=== PATIENT | male | born 1980 | race Caucasian/White ===

== ENCOUNTER 2016-11-26 22:17 | Emergency (ER) | payer OTHER ==
--- NOTE | 2016-11-26 23:08 | ED ---
Fall HPI - General Chief Complaint: Fall Stated Complaint: Fall. Neck Injury Time Seen by Provider: 11/26/16 22:40 Source: patient Mode of arrival: ambulatory - History of Present Illness Initial Comments: Patient's a 36-year-old man who presents to be evaluated after he had a fall down the stairs tonight. The patient states that he "tripped over my own feet. " And then tumbled about 8 stairs. He is complaining of pain to the TMJ area bilaterally. Also is having some left hand pain. He also noted abrasions to the left hand. MD Complaint: fall -: hour(s) Fall From: down stairs (#) When Fall Occurred: 1-3 hours [employer] Fall Witnessed: yes, by bystander Place Fall Occurred: home Loss of Consciousness: none Prolonged Down Time?: no Symptoms Prior to Fall: none - Related Data Home Medications Medication Instructions Recorded Confirmed Naproxen Sodium [Anaprox DS] 550 mg PO Q12HR PRN 11/26/16 11/26/16 Previous Rx's Medication Instructions Recorded traMADol HCl [Ultram] 50 mg PO Q6H PRN #20 tab 11/27/16 Allergies Allergy/AdvReac Type Severity Reaction Status Date / Time No Known Allergies Allergy Verified 11/26/16 22:49 Review of Systems ROS Statement: Those systems with pertinent positive or pertinent negative responses have been documented in the HPI. ROS Other: All systems not noted in ROS Statement are negative. Constitutional: Denies: fever, weakness Eyes: Denies: eye pain, vision change Respiratory: Denies: cough, dyspnea Cardiovascular: Denies: chest pain, palpitations, syncope Gastrointestinal: Denies: abdominal pain, vomiting, diarrhea Genitourinary: Denies: dysuria, hematuria Musculoskeletal: Reports: joint swelling (Left hand). Denies: back pain Skin: Reports: lesions (Abrasions left hand). Denies: rash Neurological: Reports: headache. Denies: weakness, numbness, paresthesias Hematological/Lymphatic: Denies: easy bleeding Past Medical History Past Medical History: No Reported History History of Any Multi-Drug Resistant Organisms: None Reported Past Surgical History: No Surgical Hx Reported Past Psychological History: No Psychological Hx Reported Smoking Status: Current every day smoker Past Alcohol Use History: None Reported Past Drug Use History: None Reported General Exam Limitations: no limitations General appearance: alert, in no apparent distress Head exam: Present: atraumatic, normocephalic Eye exam: Present: normal appearance. Absent: scleral icterus, conjunctival injection ENT exam: Present: normal oropharynx, mucous membranes moist, TM's normal bilaterally, normal external ear exam, other (Dental caries) Neck exam: Present: normal inspection, full ROM. Absent: tenderness, meningismus Respiratory exam: Present: normal lung sounds bilaterally. Absent: respiratory distress, wheezes, rales, rhonchi, stridor Cardiovascular Exam: Present: regular rate, normal rhythm, normal heart sounds. Absent: systolic murmur, diastolic murmur, rubs, gallop GI/Abdominal exam: Present: soft. Absent: distended, tenderness, guarding, rebound, mass Extremities exam: Present: normal inspection, full ROM, tenderness (Left hand), normal capillary refill, other (Contusion and abrasion to the dorsum the left hand.). Absent: pedal edema, calf tenderness Back exam: Present: normal inspection, full ROM. Absent: tenderness, CVA tenderness (R), CVA tenderness (L), paraspinal tenderness, vertebral tenderness Neurological exam: Present: alert, oriented X3, CN II-XII intact, normal gait. Absent: motor sensory deficit Skin exam: Present: warm, dry, intact, normal color, abrasion. Absent: rash Course Vital Signs 11/26/16 11/27/16 22:33 00:03 Temperature 98.4 F 99.5 F Pulse Rate 123 H 100 Respiratory 20 18 Rate Blood Pressure 117/87 131/78 O2 Sat by Pulse 96 97 Oximetry - Reevaluation(s) Reevaluation #1: 11/26/16 23:05 After discussion of risks, benefits, indications, the patient refuses tetanus booster. Reevaluation #2: 11/27/16 00:19 Reviewed the results with the patient and splinted the metacarpal fracture. I did recommend complete mandible series, but the patient states that he has must go. He did accept a prescription to return and have the mandible x-ray completed. We discussed further follow-up and care as well as return parameters and splint care. Disposition Clinical Impression: Fall, Fracture of fifth metacarpal bone of left hand Disposition: HOME SELF-CARE Condition: Fair Instructions: Fall Prevention for Older Adults (ED), Hand Fracture (ED) Prescriptions: traMADol HCl [Ultram] 50 mg PO Q6H PRN #20 tab PRN Reason: Pain Referrals: Franki Mcknight MD [Primary Care Provider] - 1-2 days
--- NOTE | 2016-11-26 23:36 | CT ---
EXAMINATION TYPE: CT brain jonathan wo con DATE OF EXAM: 11/26/2016 11:26 PM COMPARISON: NONE HISTORY: fall down stairs CT DLP: 1439.50 mGycm Automated exposure control for dose reduction was used. TECHNIQUE: CT scan of the head and cervical spine are performed without contrast. FINDINGS: The ventricles and sulci appear normal. There is no mass effect nor midline shift. There is no sign of intracranial hemorrhage. The calvarium is intact. The cervical vertebra have normal alignment. Posterior elements are intact. Facet joints are intact. Disc spaces are normal. Prevertebral soft tissues appear normal. Skull base appears intact. IMPRESSION: Normal CT scan of the brain. Normal CT scan of the cervical spine.
--- NOTE | 2016-11-26 23:45 | XR ---
EXAMINATION TYPE: XR hand complete LT DATE OF EXAM: 11/26/2016 11:27 PM COMPARISON: NONE HISTORY: Pain TECHNIQUE: 3 views FINDINGS: There is possible nondisplaced transverse fracture of the base of the fifth metatarsal carp al. There is no dislocation. The carpal bones appear intact. IMPRESSION: Possible proximal fifth metacarpal fracture. Clinical correlation is recommended.
--- NOTE | 2016-11-26 23:48 | XR ---
EXAMINATION TYPE: XR chest 2V DATE OF EXAM: 11/26/2016 11:26 PM COMPARISON: 06/23/2014 HISTORY: Fell down the stairs. Chest pain. TECHNIQUE: Frontal and lateral views of the chest are obtained. FINDINGS: Heart and mediastinum are normal. Lungs are clear. Diaphragm is normal. Bony thorax and so ft tissues appear normal. There is no sign of a pneumothorax. IMPRESSION: Normal chest. No change.
[2016-11-27 00:04] VITALS: BP 131/78; PULSE 100; RESP 18; TEMP 99.5
[2016-11-27] MEDS ORDERED: traMADol 50 MG TAB PO STA (00:17)
== END 2016-11-27 00:27 | disposition home or self-care (01) ==
LOC: EC 22:17
DX: S62.307A Unspecified fracture of fifth metacarpal bone, left hand, initial encounter for closed fracture (principal); W10.9XXA Fall (on) (from) unspecified stairs and steps, initial encounter; Y92.008 Other place in unspecified non-institutional (private) residence as the place of occurrence of the external cause; F17.200 Nicotine dependence, unspecified, uncomplicated; R68.84 Jaw pain
CPT/HCPCS: 70450; 71020; 72125; 99284

== ENCOUNTER 2017-02-17 12:37 | Emergency (ER) | payer OTHER ==
[2017-02-17 12:51] VITALS: BP 109/74; PULSE 75; RESP 18; TEMP 99.3
[2017-02-17] MEDS ORDERED: CLINDAMYCIN 150 MG CAP PO STA (13:20)
--- NOTE | 2017-02-17 13:23 | ED ---
ENT HPI - General Chief complaint: Dental/Oral Stated complaint: Lip Swollen Time Seen by Provider: 02/17/17 13:05 Source: patient, RN notes reviewed, old records reviewed Mode of arrival: ambulatory Limitations: no limitations - History of Present Illness Initial comments: This is a 36-year-old male presenting to emergency Department chief complaint of upper lip swelling for the past 2 days. Patient reports that he has very poor dentition is has cavities over T7, 8, 9 and 10. Patient reports he is supposed to see a dentist next week to have them pulled and be fitted for dentures. Patient reports that he would not be able to be seen by them until this infection is cleared up. Patient denies any fever or chills. He denies any difficulty opening closing his mouth. Patient states that the pain is localized over the upper lip and extending slightly up into the lower nostril. Patient reports she's been trying ice and Motrin but it is not helping with the pain. Patient states the pain is mild at this time, but at night it becomes much worse. Patient denies any recent fever, chills, shortness of breath, chest pain, back pain, abdominal pain, nausea vomiting, numbness or tingling, dysuria or hematuria, constipation or diarrhea, headaches or visual changes, or any other current symptoms - Related Data Home Medications Medication Instructions Recorded Confirmed Naproxen Sodium [Anaprox DS] 550 mg PO Q12HR PRN 11/26/16 11/26/16 Previous Rx's Medication Instructions Recorded traMADol HCl [Ultram] 50 mg PO Q6H PRN #20 tab 11/27/16 Acetaminophen-Codeine 300-30mg 1 tab PO Q6H PRN #15 tablet 02/17/17 [Tylenol #3] Clindamycin [Cleocin] 450 mg PO TID 10 Days 02/17/17 Allergies Allergy/AdvReac Type Severity Reaction Status Date / Time No Known Allergies Allergy Verified 02/17/17 12:51 Review of Systems ROS Statement: Those systems with pertinent positive or pertinent negative responses have been documented in the HPI. ROS Other: All systems not noted in ROS Statement are negative. Past Medical History Past Medical History: No Reported History History of Any Multi-Drug Resistant Organisms: None Reported Past Surgical History: No Surgical Hx Reported Past Psychological History: No Psychological Hx Reported Smoking Status: Current every day smoker Past Alcohol Use History: None Reported Past Drug Use History: None Reported General Exam - General Exam Comments Initial Comments: This is a pleasant 36-year-old male. No acute distress. Limitations: no limitations General appearance: alert, in no apparent distress Head exam: Present: atraumatic, normocephalic, normal inspection Eye exam: Present: normal appearance, PERRL, EOMI. Absent: scleral icterus, conjunctival injection, periorbital swelling ENT exam: Present: normal oropharynx, mucous membranes moist, TM's normal bilaterally. Absent: normal exam (Patient is extremely poor dentition, multiple dental caries and chipped teeth through 7, 8, 9, 10. Evidence of swelling over the upper gums. He has swelling over the upper lip.) Neck exam: Present: normal inspection. Absent: tenderness, meningismus, lymphadenopathy Respiratory exam: Present: normal lung sounds bilaterally. Absent: respiratory distress, wheezes, rales, rhonchi, stridor Cardiovascular Exam: Present: regular rate, normal rhythm, normal heart sounds. Absent: systolic murmur, diastolic murmur, rubs, gallop, clicks GI/Abdominal exam: Present: soft, normal bowel sounds. Absent: distended, tenderness, guarding, rebound, rigid Extremities exam: Present: normal inspection, full ROM, normal capillary refill. Absent: tenderness, pedal edema, joint swelling, calf tenderness Back exam: Present: normal inspection Neurological exam: Present: alert, oriented X3, CN II-XII intact Psychiatric exam: Present: normal affect, normal mood Skin exam: Present: warm, dry, intact, normal color. Absent: rash Course Vital Signs 02/17/17 12:48 Temperature 99.3 F Pulse Rate 75 Respiratory 18 Rate Blood Pressure 109/74 O2 Sat by Pulse 94 L Oximetry Medical Decision Making - Medical Decision Making This is a 36-year-old male, with significant swelling over the upper lip for the past 2 days. Patient has severe poor dentition over the upper teeth, T7, 8 , 9, 10 are full of multiple dental caries. The gums over the area are red and swollen. Patient will be started on clindamycin, and Tylenol 3 for pain. Discussed close follow-up with his dentist. Discussed return parameters if he does not get any better the next 2 or 3 days she may need to return for IV antibiotic. Patient understands treatment plan will comply. Return parameters were discussed. Disposition Clinical Impression: Dental abscess, Swollen upper lip Disposition: HOME SELF-CARE Condition: Good Instructions: Dental Abscess (ED) Additional Instructions: Patient advised to complete antibiotic prescription. He is pain medication instructed. Follow-up with her dentist as soon as possible. Return to the emergency department if the swelling continues after 2-3 days of antibiotic. Prescriptions: Acetaminophen-Codeine 300-30mg [Tylenol #3] 1 tab PO Q6H PRN #15 tablet PRN Reason: Pain Clindamycin [Cleocin] 450 mg PO TID 10 Days Referrals: Wilmar Baltazar MD [Primary Care Provider] - 1-2 days Time of Disposition: 13:19
== END 2017-02-17 13:32 | disposition home or self-care (01) ==
LOC: EC 12:37
DX: K04.7 Periapical abscess without sinus (principal); K02.9 Dental caries, unspecified; F17.200 Nicotine dependence, unspecified, uncomplicated
CPT/HCPCS: 99283

== ENCOUNTER → 2017-09-29 | Outpatient (CLI) | payer OTHER ==
--- NOTE | 2017-09-29 10:41 | XR ---
EXAMINATION TYPE: XR facial bones complete DATE OF EXAM: 09/29/2017 COMPARISON: NONE HISTORY: Pain left temporal and left eye TECHNIQUE: 3 views submitted FINDINGS: Visualized osseous structures intact. No diagnostic evidence of acute fracture. Mucosal thi ckening involving both maxillary sinuses. Nasal bone intact. IMPRESSION: 1. No acute fracture as visualized, if symptoms persist correlate with CT scan.
== END | disposition home or self-care (01) ==
LOC: RADXRMAIN 10:14
PROVIDERS: ATTEND Emergency Medicine
DX: S00.83XA Contusion of other part of head, initial encounter (principal)
CPT/HCPCS: 70150

== ENCOUNTER → 2017-10-01 | Outpatient (CLI) | payer OTHER ==
--- NOTE | 2017-10-01 14:36 | CT ---
EXAMINATION TYPE: CT brain wo con, CT facial bones wo con DATE OF EXAM: 10/01/2017 COMPARISON: CT scan of brain November 26, 2016. HISTORY: Hit left side of head with headache and left-sided facial pain. CT DLP: 667.30 (accession [id number]), 981.70 (accession [id number]) mGycm. Automated Exposure Control f or Dose Reduction was Utilized. TECHNIQUE: CT scan of the head and facial bones are performed without contrast. FINDINGS: There is no acute intracranial hemorrhage, mass effect, or midline shift identified. The ventricles and sulci are within normal limits in size. Rhodes-white matter differentiation is maintain ed. The calvarium is intact. Images of the facial bones show nasal bones appear intact. Orbital floors and barragan are intact. The g lobes are intact bilaterally. The zygomatic arches are intact bilaterally. The pterygoid plates are i ntact. Temporomandibular joints are maintained. Visualized mandible is intact. Patchy soft tissue den sity bilateral external auditory canal is felt to reflect cerumen is unchanged from prior CT. There are few small mucous retention cysts or polyps in the inferior aspect of both maxillary sinuses . There is new mucosal thickening and near-complete opacification of posterior ethmoid sinuses bilate rally. There is mild mucosal thickening left sphenoid sinus. Mild mucosal thickening anterior ethmoid sinuses bilaterally is seen. Sinus disease is new from November 26, 2016 CT. IMPRESSION: 1. No acute intracranial hemorrhage, mass effect, or midline shift is seen. 2. No acute facial bone fracture or dislocation is evident. Incidental new acute on chronic paranasal sinus disease as detailed above.
== END | disposition home or self-care (01) ==
LOC: RADCTMAIN 13:56
PROVIDERS: ATTEND Emergency Medicine
DX: J32.9 Chronic sinusitis, unspecified (principal); S00.93XA Contusion of unspecified part of head, initial encounter
CPT/HCPCS: 70450; 70486